=== PATIENT | male | born 2000 | race Caucasian/White ===

== ENCOUNTER 2022-05-01 12:42 | Emergency (ER) | payer MEDICAID ==
[~2022-05-01] VITALS: Ht 180.3 cm; Wt 80.7 kg
--- NOTE | 2022-05-01 12:50 | NUR ---
UA SPECIMEN COLLECTED
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
[2022-05-01 13:10] LABS: BASOPHILS # (AUTO) 0.1 K/uL (0.0-0.2); BASOPHILS % (AUTO) 1.1 % (0.0-2.0); EOSINOPHILS % (AUTO) 1.8 % (0.0-6.0); HEMATOCRIT 46 % (39-51); HEMOGLOBIN 15.9 g/dL (13.5-17.5); LYMPHOCYTES # (AUTO) 1.2 K/uL (0.8-4.8); MEAN CORPUSCULAR HGB CONC 34 g/dl (31.0-36.0); MEAN CORPUSCULAR VOLUME 90 fL (80-96); MONOCYTES # (AUTO) 0.6 K/uL (0.1-1.30); MONOCYTES % (AUTO) 7.8 % (2.0-12.0); NEUTROPHILS # (AUTO) 5.7 K/uL (1.8-8.9); NEUTROPHILS % (AUTO) 73.3 % (43.0-81.0); PLATELET COUNT (AUTO) 203 K/uL (150-450); RED BLOOD CELL COUNT(AUTO) 5.17 MIL/uL (4.5-6.0); WHITE BLOOD COUNT (AUTO) 7.8 K/uL (4.3-11.0)
[2022-05-01 13:24] LABS: CALCIUM, SERUM 9.5 mg/dL (8.5-10.1); CARBON DIOXIDE 26 mmol/L (21-32); CHLORIDE 102 mmol/L (98-107); CREATININE 0.7 mg/dL (0.6-1.3); GLUCOSE 110 mg/dL (74-106); SODIUM SERUM 137 mmol/L (136-145); UREA NITROGEN, BLOOD 13 mg/dL (7-18)
[2022-05-01 13:25] LABS: BILIRUBIN,URINE NEGATIVE (NEGATIVE); COLOR,URINE YELLOW (YELLOW); LEUKOCYTE ESTERASE ,URINE NEGATIVE (NEGATIVE); NITRITE, URINE NEGATIVE (NEGATIVE); PROTEIN,URINE NEGATIVE (NEGATIVE); UGLUCOSE NEGATIVE (NEGATIVE); UROBILINOGEN,URINE 0.2 EU/dL (0.2)
--- NOTE | 2022-05-01 13:27 | NUR ---
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 NEEDS TO BE OBSERVED FOR 12HRS MINIMUM. DO TYLENOL AND ASPIRIN SCREEN, BLOOD ALCOHOL LEVEL, AND DRUG SCREEN. DR MAHONEY INFORMED
[2022-05-01 13:30] LABS: ALANINE AMINOTRANSFERASE 25 U/L (12-78); ALBUMIN 4.1 g/dL (3.4-5.0); ALCOHOL, BLOOD < 3 mg/dL (0-0); ALKALINE PHOSPHATASE 86 U/L (46-116); ASPARTATE AMINOTRANSFERASE 22 U/L (15-37); BILIRUBIN,DIRECT 0.1 mg/dL (0.0-0.2); BILIRUBIN,TOTAL 0.6 mg/dL (0.2-1.0); TOTAL PROTEIN, SERUM 7.6 g/dL (6.4-8.2)
--- NOTE | 2022-05-01 13:32 | NUR ---
COVID SWAB COLLECTED AND SENT TO THE LAB.
[2022-05-01 13:33] LABS: ACETAMINOPHEN < 2 ug/ml (10-30)
--- NOTE | 2022-05-01 14:30 | NUR ---
PT GIVEN SANDWICH FOR SNACK, MAZIN WELL. NO COMPLAINT OF NAUSEA/VOMITING.
--- NOTE | 2022-05-01 16:55 | NUR ---
THE PATIENT IS ALERT AND ORIENTED X4. IN ROOM AIR AND DENIES SOB. RESPIRATION REGULAR AND UNLABORED. DENIES PAIN. WILL CONTINUE TO MONITOR THE PATIENT. SITTER AT THE BEDSIDE.
--- NOTE | 2022-05-01 18:51 | NUR ---
SISTER RICKEY [phone]
--- NOTE | 2022-05-01 20:08 | NUR ---
PT RESTING COMFORTABLY IN BED, PROVIDED HIM WITH FOOD AND WATER. 1:1 SITTER. WILL CONTINUE TO MONITOR.
--- NOTE | 2022-05-02 00:40 | NUR ---
PT IS SLEEPING AND EASILY AROUSABLE, WILL CONTINUE TO MONITOR
--- NOTE | 2022-05-02 02:12 | NUR ---
CALLED [employer] FOR PSYCH EVALUATION. [employer] DOMONIQUE CALLED BACK AND SAID A [employer] MECHANIC WILL EVALUATE THE PATIENT IN THE MORNING.
--- NOTE | 2022-05-02 03:50 | NUR ---
Otoniel bender in [facility] - 05/02/22 at 0725 by NATIVIDAD room [id number]
--- NOTE | 2022-05-02 09:57 | NUR ---
ELYSIA SERVIN, SPOKE W/ PATIENT.
[2022-05-02] MEDS ORDERED: NALO1DIS2 IM (10:06)
--- NOTE | 2022-05-02 10:15 | NUR ---
ELYSIA spoke with mother [Saira [phone]] and confirmed that pt. can go back home. Per Saira, sister will be picking pt. up. ETA: 30 mins
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
--- NOTE | 2022-05-02 10:30 | NUR ---
Patient discharged to home in stable condition. Written and verbal after care instructions given. Patient verbalizes understanding of instruction.
[2022-05-02 10:33] VITALS: BP 119/79
== END 2022-05-02 10:33 | disposition home or self-care (01) ==
LOC: ER 12:46
DX: T40.492A Poisoning by other synthetic narcotics, intentional self-harm, initial encounter (principal); Y92.099 Unspecified place in other non-institutional residence as the place of occurrence of the external cause; F32.A Depression, unspecified; Z20.822 Contact with and (suspected) exposure to COVID-19
CPT/HCPCS: 36415; 80048; 80076; 80143; 80307; 80320; 81003; 85025; 87426; 99285; C9803; G0480